=== PATIENT | female | born 1990 | race Two or more races ===

== ENCOUNTER 2020-12-09 01:37 | Emergency (ER) | payer OTHER ==
[2020-12-09 01:50] VITALS: BP 117/84; PULSE 60; TEMP 99.5; BMI 23.8
== END 2020-12-09 02:16 | disposition home or self-care (01) ==
LOC: FER 01:37
DX: L25.9 Unspecified contact dermatitis, unspecified cause (principal)
CPT/HCPCS: 99281-25

== ENCOUNTER 2025-01-14 22:48 | Emergency (ER) | payer OTHER ==
[2025-01-14 22:54] VITALS: BP 97/65; PULSE 108; RESP 18; TEMP 98.8; BMI 22.8
[2025-01-14] MEDS ORDERED: ACETAMINOPHEN 325 MG TABLET (FP) ONE (23:57)
[2025-01-14] MEDS ORDERED: LIDOCAINE 4% PATCH TP ONE (23:57)
[2025-01-15] MEDS: LIDOCAINE 5% TOPICAL PATCH TP ONE (00:05)
[2025-01-15] MEDS: ACETAMINOPHEN 325 MG TABLET (FP) PO ONE (00:05)
[2025-01-15] MEDS ORDERED: LIDOCAINE PATCH REMOVAL MC ONE (12:00)
== END 2025-01-15 00:10 | disposition home or self-care (01) ==
LOC: JER 22:48
DX: R10.32 Left lower quadrant pain (principal); R10.2 Pelvic and perineal pain; Z3A.16 16 weeks gestation of pregnancy
CPT/HCPCS: 99283-25